=== PATIENT | female | born 1980 | race Caucasian/White ===

== ENCOUNTER 2017-09-30 18:45 | Emergency (ER) | payer MEDICAID ==
[~2017-09-30] VITALS: Ht 152.4 cm; Wt 65.8 kg
[2017-09-30 19:02] VITALS: BP 134/56
--- NOTE | 2017-09-30 19:58 | NUR ---
PATIENT AMBULATED TO ER BED 10
--- NOTE | 2017-09-30 20:03 | NUR ---
PATIENT PRESENTS TO ED WITH LOWER BACK PAIN X1 DAY. PT DENIES N/V/D; SKIN IS PINK/WARM/DRY; AAOX4 WITH EVEN AND STEADY GAIT; LUNGS CLEAR BL; HR EVEN AND REGULAR; PT DENIES ANY FEVER, CP, SOB, OR COUGH AT THIS TIME; PATIENT STATES PAIN OF 6/10 AT THIS TIME; VSS; PATIENT POSITIONED FOR COMFORT; HOB ELEVATED; BEDRAILS UP X1; BED DOWN. ER MD MADE AWARE OF PT STATUS.
[2017-09-30] MEDS ORDERED: IBUPROFEN 600 MG TAB PO ONE (21:35)
--- NOTE | 2017-09-30 22:16 | NUR ---
AT BEDSIDE WITH PATIENT. NO SIGNS OR SYMPTOMS OF ACUTE DISTRESS NOTED. WILL CONTINUE TO MONITOR.
[2017-09-30 22:50] VITALS: BP 100/67
--- NOTE | 2017-09-30 22:51 | NUR ---
Patient discharged with v/s stable. Written and verbal after care instructions given and explained. Patient alert, oriented and verbalized understanding of instructions. Ambulatory with steady gait. All questions addressed prior to discharge. ID band removed. Patient advised to follow up with PMD. Rx of IBUPROFEN, FLEXERIL given. Patient educated on indication of medication including possible reaction and side effects. Opportunity to ask questions provided and answered.
== END 2017-09-30 22:51 | disposition home or self-care (01) ==
LOC: MED 18:45
DX: S39.012A Strain of muscle, fascia and tendon of lower back, initial encounter (principal); X58.XXXA Exposure to other specified factors, initial encounter; Y93.89 Activity, other specified; Y92.69 Other specified industrial and construction area as the place of occurrence of the external cause; Y99.0 Civilian activity done for income or pay
CPT/HCPCS: 81002; 81025; 99283

== ENCOUNTER 2018-11-22 01:50 | Emergency (ER) | payer MEDICAID ==
[~2018-11-22] VITALS: Ht 154.9 cm; Wt 77.1 kg
[2018-11-22 01:53] VITALS: BP 112/64
--- NOTE | 2018-11-22 01:53 | NUR ---
TO BED # 07 AMBULATORY
--- NOTE | 2018-11-22 02:10 | NUR ---
38/F PRESENTS TO ED WITH SON AND , C/O 01/03 NONRADIATING L SIDED CP, X3 DAYS INTERMITTENTLY BUT WORSENING. PT DENIES COUGH, FEVER, SOB, N/V. AOX4, SKIN NORMAL WARM AND DRY, RR EVEN AND UNLABORED. LUNG SOUNDS CLEAR BL. NSR ON MONITOR. DENIES MED HX, RX OR OTC. REPORTS MODERATE ALCOHOL USE, DENIES SMOKING/SUBSTANCE ABUSE. 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
[2018-11-22] MEDS ORDERED: NACL 0.9% 1,000 ML IV ONE (03:05)
[2018-11-22 03:23] LABS: BASOPHILS # (AUTO) 0.1 K/uL (0.00-0.22); BASOPHILS % (AUTO) 0.7 % (0.0-2.0); EOSINOPHILS # (AUTO) 0.2 K/uL (0-0.4); EOSINOPHILS % (AUTO) 2.4 % (0.0-4.0); HEMOGLOBIN 12.8 g/dL (12.0-16.0); LYMPHOCYTES # (AUTO) 2.3 K/uL (2.5-16.5); LYMPHOCYTES % (AUTO) 30.5 % (20.5-51.1); MEAN CORPUSCULAR HEMOGLOBIN 28 pg (27-31); MEAN CORPUSCULAR HGB CONC 34 g/dL (33-37); MEAN CORPUSCULAR VOLUME 83.1 fL (80-94); MONOCYTES # (AUTO) 0.5 K/uL (0.8-1.0); MONOCYTES % (AUTO) 7.2 % (1.7-9.3); NEUTROPHILS # (AUTO) 4.5 K/uL (1.8-7.7); NEUTROPHILS % (AUTO) 59.2 % (42.2-75.2); PLATELET COUNT (AUTO) 271 K/uL (140-450); RED BLOOD CELL COUNT(AUTO) 4.57 MIL/uL (4.20-5.40); WHITE BLOOD COUNT (AUTO) 7.5 K/uL (4.8-10.8)
--- NOTE | 2018-11-22 03:25 | NUR ---
X-RAY AT BEDSIDE.
[2018-11-22 03:33] LABS: APPEARANCE,URINE CLEAR (CLEAR); BILIRUBIN,URINE NEGATIVE (NEGATIVE); BLOOD, URINE TRACE-I (NEGATIVE); COLOR,URINE YELLOW (YELLOW); LEUKOCYTE ESTERASE ,URINE NEGATIVE (NEGATIVE); NITRITE, URINE NEGATIVE (NEGATIVE); UGLUCOSE NEGATIVE (NEGATIVE)
[2018-11-22 03:38] LABS: RBC,URINE 0-5 /HPF (0-5)
[2018-11-22 03:39] LABS: WBC,URINE NONE SEEN /HPF (0-5)
[2018-11-22 03:42] LABS: ANION GAP 13.1 (8-16); CARBON DIOXIDE 28.6 mmol/L (21-32); CREATININE 0.9 mg/dL (0.6-1.3); POTASSIUM 3.7 mmol/L (3.5-5.1)
[2018-11-22 03:47] LABS: ALBUMIN 3.9 g/dL (3.4-5.0); TOTAL BILIRUBIN 0.3 mg/dL (0.0-1.0)
[2018-11-22 03:50] LABS: PROTHROMBIN TIME 9.6 secs (10.8-13.4)
[2018-11-22 03:55] LABS: BARBITURATE, URINE NEG. ng/ml (NEG <=200); BENZODIAZEPINE, URINE NEG. ng/mL (NEG <=200); CANNABINOID, URINE NEG. ng/mL (NEG <=50); COCAINE, URINE NEG. ng/mL (NEG <=300); OPIATE, URINE NEG. ng/mL (NEG <=2000); PHENCYCLIDINE SCREEN,URINE NEG. ng/mL (NEG <=25)
--- NOTE | 2018-11-22 04:16 | NUR ---
PT SLEEPING, AROUSABLE TO NAME, FAMILY AT BEDSIDE, RR EVEN AND UNLABORED. VS NOTED. REPORTS 2/10 CP AT THIS TIME. ALL NEEDS MET.
--- NOTE | 2018-11-22 04:38 | NUR ---
ALL RESULTS BACK AND NOTED BY ERMD AND FOR D/C. ERMD AT BEDSIDE RE EVALUATING THE PATIENT.
[2018-11-22 04:50] VITALS: BP 105/63
--- NOTE | 2018-11-22 04:50 | NUR ---
Patient discharged with v/s stable. Written and verbal after care instructions given and explained. Patient alert, oriented and verbalized understanding of instructions. Ambulatory with steady gait. All questions addressed prior to discharge. ID band removed. Patient advised to follow up with PMD. Rx of TRAMAMDOL 50 MG given. Patient educated on indication of medication including possible reaction and side effects. Opportunity to ask questions provided and answered.
== END 2018-11-22 04:50 | disposition home or self-care (01) ==
LOC: MED 01:50
DX: R07.9 Chest pain, unspecified (principal)
CPT/HCPCS: 36415; 71045; 80053; 80305; 81001; 81025; 83880; 84484; 85025; 85610; 85730; 93005; 99284; J7030; Q0092

== ENCOUNTER 2019-02-23 17:38 | Emergency (ER) | payer MEDICAID ==
[~2019-02-23] VITALS: Ht 160 cm; Wt 63.5 kg
[2019-02-23 17:42] VITALS: BP 122/68
[2019-02-23] MEDS ORDERED: DEXAMETHASONE 10 MG/ML VIAL IM ONE (18:00)
[2019-02-23] MEDS ORDERED: KETOROLAC 30 MG/ML VIAL IM ONE (18:00)
[2019-02-23 19:02] VITALS: BP 120/72
== END 2019-02-23 19:02 | disposition home or self-care (01) ==
LOC: MED 17:38
DX: M77.11 Lateral epicondylitis, right elbow (principal); M77.01 Medial epicondylitis, right elbow
CPT/HCPCS: 96372; 99283; J1100; J1885

== ENCOUNTER 2019-05-30 11:04 | Emergency (ER) | payer SELFPAY ==
[~2019-05-30] VITALS: Ht 154.9 cm; Wt 79.4 kg
[2019-05-30 11:20] VITALS: BP 113/70
--- NOTE | 2019-05-30 11:23 | NUR ---
PT AMBULATED TO BED 8.
--- NOTE | 2019-05-30 11:25 | NUR ---
39 Y/O F WITH C/C OF LUE JOINT PAIN; 09/03; X SEVERAL MONTHS. PT HAS USED CREAMS AND NAPROXEN FOR PAIN RELIEF. PER PT DOES NOT HAVE PRIMARY PHYSICIAN. PT NKA. NO HX. NO RX. NO N/V/D. SIDE RAIL X1. ROM WDL.
[2019-05-30 12:24] VITALS: BP 113/70
== END 2019-05-30 12:24 | disposition home or self-care (01) ==
LOC: MED 11:04
DX: M77.8 Other enthesopathies, not elsewhere classified (principal)
CPT/HCPCS: 99283

== ENCOUNTER 2021-02-04 18:38 | Emergency (ER) | payer MEDICAID ==
[~2021-02-04] VITALS: Ht 160 cm; Wt 76.7 kg
[2021-02-04 18:50] VITALS: BP 111/70
[2021-02-04 19:55] VITALS: BP 111/70
--- NOTE | 2021-02-04 19:55 | NUR ---
Patient discharged with v/s stable.NO after care instructions given . . Ambulatory with steady gait.
== END 2021-02-04 19:55 | disposition home or self-care (01) ==
LOC: MED 18:38
DX: R25.3 Fasciculation (principal)
CPT/HCPCS: 99281

== ENCOUNTER 2021-10-28 17:48 | Emergency (ER) | payer MEDICAID ==
[~2021-10-28] VITALS: Ht 154.9 cm; Wt 74.8 kg
[2021-10-28 17:58] VITALS: BP 117/77
[2021-10-28] MEDS ORDERED: predniSONE 20 MG TAB PO ONE (18:20)
[2021-10-28] MEDS ORDERED: ALBUTEROL SULFATE/IPRATROPIU 3 ML SOL IH ONE (18:20)
--- NOTE | 2021-10-28 18:59 | NUR ---
RT WITH PT FOR BREATHING TX
--- NOTE | 2021-10-28 19:13 | NUR ---
PT AMBULATED TO ER BED 7
[2021-10-28] MEDS ORDERED: PROM118S5 PO (19:45)
[2021-10-28] MEDS ORDERED: AZIT250T4 PO (19:45)
[2021-10-28] MEDS ORDERED: PRED20TA5 PO (19:45)
[2021-10-28] MEDS ORDERED: ALBU0.0912 IH (19:45)
--- NOTE | 2021-10-28 19:48 | NUR ---
41 Y/O FEMALE C/O SOB AND FATIGUE X5DAYS. SPO2 98% ON RA. DENIES FEVER/CHILLS. DENIES N/V/D. DENIES PAIN AT THIS TIME. HAD A NEG COVID TEST AT HOME AND IS NOT VACCINATED. A&OX4, NO SIGNS OF RESPIRATORY DISTRESS AT THIS TIME, NO CHEST PAIN, SKIN INTACT, AND STEADY GAIT. PT RESTING IN BED. DENIES PMH NKA
[2021-10-28 20:27] VITALS: BP 117/77
--- NOTE | 2021-10-28 20:27 | NUR ---
Patient discharged with v/s stable. Written and verbal after care instructions given and explained. Patient alert, oriented and verbalized understanding of instructions. Ambulatory with steady gait. All questions addressed prior to discharge. ID band removed. Patient advised to follow up with PMD. Rx of ALBUTEROL SULFATE, AZITHROMYCIN, PREDNISONE, AND PROMETHAZINE-DM given. Patient educated on indication of medication including possible reaction and side effects. Opportunity to ask questions provided and answered.
== END 2021-10-28 20:46 | disposition home or self-care (01) ==
LOC: MED 17:48
DX: J20.9 Acute bronchitis, unspecified (principal); Z77.098 Contact with and (suspected) exposure to other hazardous, chiefly nonmedicinal, chemicals; Z79.899 Other long term (current) drug therapy
CPT/HCPCS: 71045; 94640; 99283; J7512

== ENCOUNTER 2021-12-29 14:30 | Emergency (ER) | payer MEDICAID ==
[~2021-12-29] VITALS: Ht 157.5 cm; Wt 74.8 kg
[~2021-12-29 14:30] MED LIST: ALBU0.0912 IH; AZIT250T4 PO; PRED20TA5 PO; PROM118S5 PO
[2021-12-29 14:34] VITALS: BP 118/66
[2021-12-29] MEDS ORDERED: predniSONE 20 MG TAB PO ONE (15:05)
[2021-12-29] MEDS ORDERED: ALBUTEROL SULFATE/IPRATROPIU 3 ML SOL IH ONE (15:05)
--- NOTE | 2021-12-29 15:20 | NUR ---
41 y/o female c/o nasal congestion + chest pressure x1 week along with shortness of breath x 2 days. Reports difficulty breathing exacerbated by activity. Reports was cleaning and fumigating home and after spraying aerosolized agents began to feel short of breath. Denies, cough, fever, chills, nvd. Skin is warm, dry, and intact. Expiratory wheezes auscultated througout. Respiratory effort normal with symmetrical chest expansion. pmh: denies NKA
[2021-12-29] MEDS ORDERED: ALBU0.0912 IH (16:13)
[2021-12-29] MEDS ORDERED: PRED20TA5 PO (16:13)
[2021-12-29] MEDS ORDERED: LORA10SG1 PO (16:13)
[2021-12-29 16:30] VITALS: BP 108/67
--- NOTE | 2021-12-29 16:30 | NUR ---
Patient discharged with v/s stable. Written and verbal after care instructions given and explained. Patient alert, oriented and verbalized understanding of instructions. Ambulatory with steady gait. All questions addressed prior to discharge. ID band removed. Patient advised to follow up with PMD. Rx of Proventil, Loratadine, Prednisone given. Patient educated on indication of medication including possible reaction and side effects. Opportunity to ask questions provided and answered.
== END 2021-12-29 16:30 | disposition home or self-care (01) ==
LOC: MED 14:30
DX: J20.9 Acute bronchitis, unspecified (principal)
CPT/HCPCS: 93005; 94640; 99283; J7512

== ENCOUNTER 2022-03-24 19:10 | Emergency (ER) | payer MEDICAID ==
[~2022-03-24] VITALS: Ht 157.5 cm; Wt 76.2 kg
[~2022-03-24 19:10] MED LIST changes: +LORA10SG1 PO
[2022-03-24 19:15] VITALS: BP 123/66
[2022-03-24 19:22] VITALS: BP 123/66
--- NOTE | 2022-03-24 19:22 | NUR ---
Patient BIB by family from home. C/O chills, cold and chest discomfort x today. Patient reported, had chills, cold, sweat and chest discomfort ~ 30 minutes ETA. NO CP. A/O,X4, no SOB, No CP, felt discomfort on her chest. PMHx: Asthma
--- NOTE | 2022-03-24 20:20 | NUR ---
Called - no show in lobby and outside.
--- NOTE | 2022-03-24 20:29 | NUR ---
PATIENT LEFT WITHOUT BEING SEEN BY DR. Sanchez. NO FURTHER CARE PROVIDED FOR PATIENT.
--- NOTE | 2022-03-24 20:29 | NUR ---
Called - no show in lobby or outside.
== END 2022-03-24 20:20 | disposition left against medical advice (07) ==
LOC: MED 19:10
DX: R07.89 Other chest pain (principal); R68.83 Chills (without fever); Z53.21 Procedure and treatment not carried out due to patient leaving prior to being seen by health care provider

== ENCOUNTER 2023-06-22 06:25 | Emergency (ER) | payer MEDICAID ==
[~2023-06-22] VITALS: Ht 165.1 cm; Wt 2.3 kg
[2023-06-22] MEDS ORDERED: NACL 0.9% 2,000 ML IV ONE (06:55)
[2023-06-22 07:09] VITALS: PULSE 101; RESP 20; TEMP 97.9; O2SAT 98
[2023-06-22 07:34] LABS: BASOPHILS % (AUTO) 0.5 % (0.0-2.0); EOSINOPHILS # (AUTO) 0.1 K/uL (0-0.4); EOSINOPHILS % (AUTO) 0.7 % (0.0-4.0); HEMOGLOBIN 13.5 g/dL (12.0-16.0); LYMPHOCYTES # (AUTO) 1.9 K/uL (2.5-16.5); LYMPHOCYTES % (AUTO) 23.3 % (20.5-51.1); MEAN CORPUSCULAR HEMOGLOBIN 29 pg (27-31); MEAN CORPUSCULAR HGB CONC 34 g/dL (33-37); MEAN CORPUSCULAR VOLUME 85.3 fL (80-94); MONOCYTES # (AUTO) 0.5 K/uL (0.8-1.0); MONOCYTES % (AUTO) 6.4 % (1.7-9.3); NEUTROPHILS # (AUTO) 5.6 K/uL (1.8-7.7); NEUTROPHILS % (AUTO) 69.1 % (42.2-75.2); PLATELET COUNT (AUTO) 245 K/uL (140-450); RED BLOOD CELL COUNT(AUTO) 4.69 MIL/uL (4.20-5.40); RED CELL DISTRIBUTION WIDTH 14.4 % (11.6-13.7); WHITE BLOOD COUNT (AUTO) 8.1 K/uL (4.8-10.8)
[2023-06-22 07:53] LABS: ANION GAP 15.8 (8-16); CALCIUM 8.9 mg/dL (8.5-10.1); CARBON DIOXIDE 25.8 mmol/L (21-32); CREATININE 0.9 mg/dL (0.6-1.3); POTASSIUM 3.6 mmol/L (3.5-5.1)
[2023-06-22 10:03] VITALS: BP 123/78; PULSE 70; RESP 16; TEMP 98; O2SAT 99
== END 2023-06-22 10:01 | disposition home or self-care (01) ==
LOC: MED 06:25
DX: R53.83 Other fatigue (principal); J45.909 Unspecified asthma, uncomplicated; Z79.899 Other long term (current) drug therapy
CPT/HCPCS: 36415; 80048; 84703; 85025; 96360; 99283; G0482; J7030

== ENCOUNTER 2024-03-22 09:01 | Emergency (ER) | payer MEDICAID, OTHER ==
[~2024-03-22] VITALS: Ht 162.6 cm; Wt 72.6 kg
[2024-03-22 09:08] VITALS: BP 140/87; PULSE 99; RESP 18; TEMP 98; O2SAT 100
[2024-03-22] MEDS: LORazepam 1 MG TAB PO ONE (09:42)
[2024-03-22] MEDS ORDERED: ATA25 PO (09:42)
[2024-03-22 09:52] VITALS: BP 134/79; PULSE 71; RESP 13; TEMP 98; O2SAT 100
== END 2024-03-22 09:54 | disposition home or self-care (01) ==
LOC: MED 09:01
DX: F41.9 Anxiety disorder, unspecified (principal); R00.2 Palpitations; R06.02 Shortness of breath; R11.2 Nausea with vomiting, unspecified; R03.0 Elevated blood-pressure reading, without diagnosis of hypertension; J45.909 Unspecified asthma, uncomplicated; F17.200 Nicotine dependence, unspecified, uncomplicated; F14.90 Cocaine use, unspecified, uncomplicated; Z79.899 Other long term (current) drug therapy
CPT/HCPCS: 81025; 93005; 99283